=== PATIENT | female | born 1985 | race Caucasian/White ===

== ENCOUNTER → 2018-03-04 | Outpatient (CLI) | payer OTHER ==
--- NOTE | 2018-03-05 07:36 | USB ---
Reason for exam: clinical finding. Indicated problem(s): lump or thickening in the left breast. Physical Findings: Nurse Summary: Patient complains of left breast lump x 2 weeks (nurse luke). US Breast LT Left complete breast ultrasound includes all four quadrants, the retroareolar region and axilla. Finding demonstrates no cystic or solid lesion seen. These results were verbally communicated with the patient and result sheet given to the patient on 03/04/18. ASSESSMENT: Negative, BI-RAD 1 RECOMMENDATION: Routine screening mammogram of both breasts at age 40. Manage on a clinical basis with regard to left lump.
== END | disposition home or self-care (01) ==
LOC: RADUSWWP 15:38
PROVIDERS: ATTEND Family Medicine
DX: N63.20 Unspecified lump in the left breast, unspecified quadrant (principal)

== ENCOUNTER → 2019-09-15 | Outpatient (CLI) | payer OTHER ==
--- NOTE | 2019-09-15 10:09 | USB ---
Reason for exam: clinical finding. Physical Findings: Nurse did not find any significant physical abnormalities on exam. US Breast LT Technologist: Supriya Chavez complete breast ultrasound includes all four quadrants, the retroareolar region and axilla. Finding demonstrates no cystic or solid lesion seen. These results were verbally communicated with the patient and result sheet given to the patient on 09/15/19. ASSESSMENT: Negative, BI-RAD 1 RECOMMENDATION: Routine screening mammogram of both breasts at age 40. (unless clinical indication to start sooner) Manage on a clinical basis with regard to any suspicious palpable abnormalities.
== END | disposition home or self-care (01) ==
LOC: RADUSWWP 08:43
PROVIDERS: ATTEND Family Medicine
DX: N63.20 Unspecified lump in the left breast, unspecified quadrant (principal)

== ENCOUNTER → 2022-06-01 | Day surgery (SDC) | payer OTHER ==
--- NOTE | 2022-06-06 14:29 | USB ---
Risk Values: Noemi 5 year model risk: 0.3%. NCI Lifetime model risk: 7.4%. Pathology Description: Marker Left Behind. Needle Type: Mammotone Cores: 8 Gauge: 13 The procedure of ultrasound guided core biopsy was explained to the patient. Benefits, alternatives, and risks were discussed. An informed consent was then obtained. The oval echogenic lesion measuring 1.3 cm is identified at the 12:00 position right breast, 5 cm from the nipple and is targeted for biopsy. This is a patient palpated area without discrete mammographic correlate. The patient was placed in supine positioning for imaging and for the procedure. The overlying skin was prepped and draped in usual sterile fashion. Lidocaine was used as anesthetic into the skin and subcutaneous tissue up to area of concern in the right breast. Under ultrasound guidance, a 13-gauge vacuum-assisted mammotome Elite biopsy gun was was used to obtain 8 core samples. Following this, a Hydromark clip was left in lesion. The patient tolerated the procedure well without any immediate complication. The patient was kept in the radiology department for short stay after the procedure and then discharged home in stable condition. Postprocedure mammogram: The patient was transferred to mammography for physician ordered post procedure mammogram for clip placement verification. No discrete mammographic correlate at the 12-1 o'clock site of clip deployment. Impression: Successful, uncomplicated ultrasound guided core biopsy of area of concern in the 12:00 right breast. This is a patient palpated area. No mammographic correlate is seen. Full pathology results to follow. Pathology Results: Result: Benign, Fibrocystic change. RIGHT BREAST, CORE BIOPSY: Fat necrosis with focal fibrosis and fibrocystic change. Correlation with imaging studies is suggested, as clinically indicated. Tissue Density: Right: The breast tissue is heterogeneously dense. This may lower the sensitivity of mammography. Overall Assessment: Benign Assessment: MG diagnostic mammo RT wo CAD - Right: Benign, BI-RAD 2. Management: Diagnostic Breast Ultrasound of the right breast in 6 months. Electronically signed and approved by: Eva Cast M.D. Radiologist
== END ==
LOC: RADMAMWWP 12:31
PROVIDERS: ATTEND Family Medicine
DX: N63.10 Unspecified lump in the right breast, unspecified quadrant (principal); R92.8 Other abnormal and inconclusive findings on diagnostic imaging of breast
CPT/HCPCS: 88305; 77065; 19083; A4648

== ENCOUNTER → 2022-08-31 | Outpatient (CLI) | payer OTHER ==
[2022-08-31 09:24] VITALS: BP 123/84; PULSE 76; RESP 17; TEMP 98.9
--- NOTE | 2022-08-31 10:13 | P.GSHP ---
History of Present Illness H&P Date: 08/31/22 Chief Complaint: abnormal right breast ultrasound Pamella is a 37-year-old white female seen in consultation for Comfort Kelly. She had a bilateral mammogram performed on 12-20-21 which was BIRAD 2 benign. She than 3 months later felt nodularity in the right breast and an ultrasound was performed 05-12-22, this revealed a 1.1 x 1.3 cm hypoechoic oval lesion in the right breast at 12:00. This was consistent with what the patient felt. An ultrasound-guided core biopsy was performed on 06-01-22 and revealed necrosis with focal fibrosis and fibrocystic change. This is reviewed with Dr. Cast and felt to be concordant. This is a new finding for the patient. Foll owing the biopsy she noted some change in coloration of the skin at the area of the lump. In a causes some anxiety for her. She has never had any other surgery on her breast. She is not complaining of any trauma to the breast or any recent infections in the breast. She is not complaining of any nipple discharge or other skin changes. The skin changes occurred after the biopsy and she noted some erythema at the biopsy site. The erythema has not changed, she is not complaining of any fever or chills. She was not treated with any antibiotics. The erythema has not changed since it started. It started 2 weeks after biopsy. Caffiene: 2 cups/day nicotine: none; stopped 15 years ago smoked 3 years 1/2 PPD chocolate: weekly BCP: none hormones: none Family History: mother: pancreatic cancer Hormonal History: menarche: 13 A1, age at first : 18, breast fed: yes periods regular BCP: none hormones: none Surgical history: left thyroid resection no cancer D&C Medical History: HTN Social History: nicotine: as above alcohol: rare drugs: none - Constitutional Constitutional: Denies chills, Denies fever - EENT Eyes: denies blurred vision, denies pain Ears: deny: decreased hearing, tinnitus Ears, nose, mouth and throat: Denies headache, Denies sore throat - Breasts Breasts: bilateral: as per HPI - Cardiovascular Cardiovascular: Denies chest pain, Denies shortness of breath - Respiratory Respiratory: Denies cough, Denies 7 - Gastrointestinal Gastrointestinal: Denies abdominal pain, Denies diarrhea, Denies nausea, Denies vomiting - Genitourinary (Female) Genitourinary: Denies dysuria, Denies hematuria - Menstruation Menstruation: Reports period normal - Musculoskeletal Musculoskeletal: Denies myalgias - Integumentary Integumentary: Reports as per HPI - Neurological Neurological: Denies numbness, Denies weakness - Psychiatric Psychiatric: Denies anxiety, Denies depression - Endocrine Endocrine: Denies fatigue, Denies weight change - Hematologic/Lymphatic Comment: none - Allergic/Immunologic Allergic/Immunologic: Reports as per HPI Past Medical History Past Medical History: Hypertension History of Any Multi-Drug Resistant Organisms: None Reported Additional Past Surgical History / Comment(s): Left sided thyroidectomy, no medication Past Anesthesia/Blood Transfusion Reactions: No Reported Reaction Past Psychological History: No Psychological Hx Reported Smoking Status: Former smoker Past Alcohol Use History: None Reported, Rare Additional Past Alcohol Use History / Comment(s): quit smoking 2004?? Past Drug Use History: None Reported Medications and Allergies Home Medications Medication Instructions Recorded Confirmed Type amLODIPine 1 each PO DAILY 05/31/22 08/31/22 History lisinopriL [Zestril] 10 mg PO DAILY 05/31/22 08/31/22 History Allergies Allergy/AdvReac Type Severity Reaction Status Date / Time ceftriaxone [From Rocephin] Allergy Rash/Hives Verified 08/31/22 09:22 Surgical - Exam Vital Signs Temp Pulse Resp BP Pulse Ox 98.9 F 76 17 123/84 98 08/31/22 09:22 1208 09:22 12 09:22 08/31/22 09:22 08/31/22 09:22 BMI: 42.3 - General no distress - Eyes normal ocular movement - Neck well healed scar from thyroid resection at the age of 18 trachea midline - Respiratory normal respiratory effort, clear to auscultation - Cardiovascular Rhythm: regular Heart Sounds: normal: S1, S2 - Abdomen Abdomen: soft, non tender, no guarding, no rigid, no rebound - Integumentary The biopsy track in the right breast there is mild erythema which does not look to be infectious in nature but may be inflammatory in nature - Neurologic no disoriented, no combative - Musculoskeletal normal gait - Psychiatric oriented to time, oriented to person, oriented to place, speech is normal, memory intact Breast examination: BRA: 36C inspection; bilateral grade 3 ptosis Palpation: Right breast: Multi-positional exam fibrocystic changes, at the 12 o'clock position in the upper inner area of the pressors approximately 1 cm area of nodularity corresponding to the area which the patient palpated which was biopsied/this came back as fat necrosis and was felt to be concordant and reviewed with Dr. Cast Right axilla: No adenopathy of concern Left breast: Multi-positional exam fibrocystic changes no dominant masses or nodules of concern Left axilla: No adenopathy of concern Results Mammogram and ultrasound reviewed personally with Dr. Cast; lesion biopsy was felt to be concordant pathology with the area of the right breast at 12:00 Assessment and Plan Assessment: Impression: Palpable mass right breast 12:00/ultrasound-guided core biopsy revealing fat necrosis felt to be concordant Mass causes anxiety for the patient Plan: The patient is going to consider if she would like this to be resected or not secondary to the anxiety that this is causing her If patient chooses not to have this resected repeat ultrasound in 6 months recommended 2 and family history of pancreatic cancer, we have discussed genetic counseling and she is going to consider this CC: Comfort Kelly; Dr. Milner
== END ==
LOC: WWCWWP 08:57
PROVIDERS: ATTEND Surgery
DX: R92.8 Other abnormal and inconclusive findings on diagnostic imaging of breast (principal)

== ENCOUNTER → 2024-02-08 | Outpatient (CLI) | payer OTHER ==
[2024-02-08 15:17] LABS: Basophils # (A) 0.03 X 10*3/uL (0.00-0.10); Basophils % (A) 0.5 %; Eosinophils # (A) 0.07 X 10*3/uL (0.04-0.35); Eosinophils % (A) 1.2 %; HCT 39.6 % (37.2-46.3); HGB 13.4 g/dL (12.0-15.0); Lymphocytes # (A) 1.54 X 10*3/uL (0.90-5.00); Lymphocytes % (A) 26.3 %; MCH 29.4 pg (27.0-32.0); MCHC 33.8 g/dL (32.0-37.0); MCV 86.8 FL (80.0-97.0); Monocytes # (A) 0.41 X 10*3/uL (0.20-1.00); NRBC Per 100 WBC 0 X 10*3/uL (0.00-0.01); Neutrophils # (A) 3.79 X 10*3/uL (1.80-7.70); Neutrophils % (A) 64.8 %; Platelet Count 240 X 10*3/uL (140-440); RBC 4.56 X 10*6/uL (4.10-5.20); RDW 12.8 % (11.5-14.5); WBC 5.85 X 10*3/uL (4.50-10.00)
[2024-02-08 15:41] LABS: ALT 12 U/L (8-44); AST 15 U/L (13-35); Albumin 4.4 g/dL (3.8-4.9); Alkaline Phosphatase 55 U/L (41-126); BUN/Creat Ratio 15.43 Ratio (12.00-20.00); Blood Urea Nitrogen 10.8 mg/dL (9.0-27.0); Calcium 9.4 mg/dL (8.7-10.3); Carbon Dioxide 22.7 mmol/L (21.6-31.8); Chloride 104 mmol/L (96-109); Globulin 2.1 g/dL (1.6-3.3); Glucose 101 mg/dL (70-110); LDL Cholesterol,Calculated 102.2 mg/dL (0.0-131.0); Potassium 4.2 mmol/L (3.5-5.5); Sodium 140 mmol/L (135-145); Total Bilirubin 0.9 mg/dL (0.3-1.2); Total Protein 6.5 g/dL (6.2-8.2)
== END | disposition home or self-care (01) ==
LOC: LABWHC1 08:36
PROVIDERS: ATTEND Family Medicine
DX: I10 Essential (primary) hypertension (principal)
CPT/HCPCS: 36415; 80053; 80061; 84443; 85025

== ENCOUNTER → 2024-12-29 | Outpatient (CLI) | payer OTHER ==
--- NOTE | 2024-12-30 15:37 | MM ---
Reason for Exam: Screening (asymptomatic). Last mammogram was performed 3 year(s) and 1 month(s) ago. Patient History: Menarche at age 13. First Full-Term at age 17. Patient has history of breast feeding. 06/01/2022, Benign US biopsy breast VAD RT on the right side. Last menstrual period: 12/22/2024 Risk Values: Noeim 5 year model risk: 0.6%. NCI Lifetime model risk: 9.0%. Prior Study Comparison: 12/20/2021 Bilateral Screening Mammogram, [facility]. 06/01/2022 Right MG diagnostic mammo RT wo CAD, [facility]. Tissue Density: There are scattered areas of fibroglandular density. Findings: Analyzed By CAD. Upper-outer quadrant focal asymmetry right breast remains unchanged compared to the 2021 exam. There is no suspicious group of microcalcifications or new suspicious mass in either breast. Overall Assessment: Benign, BI-RAD 2 Management: Screening Mammogram of both breasts in 1 year. Patient should continue monthly self-breast exams. A clinical breast exam by your physician is recommended on an annual basis. This exam should not preclude additional follow-up of suspicious palpable abnormalities. Note on Noemi scores and lifetime risk: 1. A Noemi score greater than 3% is considered moderate risk. If this is the case, consider specialist referral to assess eligibility for a risk reducing agent. 2. If overall lifetime risk for the development of breast cancer is 20% or higher, the patient may qualify for future screening with alternating mammogram and breast MRI. [facility], , 12/30/2024 3:34 PM. Electronically signed and approved by: Eva Cast M.D. Radiologist
== END | disposition home or self-care (01) ==
LOC: RADMAMWWP 15:42
PROVIDERS: ATTEND Internal Medicine
DX: Z12.31 Encounter for screening mammogram for malignant neoplasm of breast (principal); R92.323 Mammographic fibroglandular density, bilateral breasts
CPT/HCPCS: 77067

== ENCOUNTER → 2024-12-29 | Outpatient (CLI) | payer OTHER ==
--- NOTE | 2024-12-29 16:16 | US ---
EXAMINATION TYPE: US thyroid st tissue head/neck DATE OF EXAM: 12/29/2024 COMPARISON: NONE CLINICAL INDICATION: Female, 39 years old with history of Z86.39 HX THYROID NODULE; pt had left thyro id removed TECHNIQUE: Grayscale and color Doppler imaging of the thyroid gland. FINDINGS: GLAND SIZE: Right Lobe: 4.9 x 2.4 x 1.9 cm Overall Parenchyma: heterogeneous Left Lobe: Surgically absent Isthmus Thickness: 0.7 cm NODULES RIGHT: # of nodules measured on right: 1 1. 1.1 X 1.1 x 0.8 cm, lower medial, cystic or almost completely cystic, very hypoechoic nodule, wh ich is wider than tall, with smooth margins, with echogenic foci. TR 1 ISTHMUS: # of nodules measured in the isthmus: 0 Bilateral neck scanned, no evidence of lymphadenopathy. IMPRESSION: Highest TI-RADS level nodule reported: 2017 ACR TI-RADS LEVEL: TI-RADS 1 - BENIGN: No FNA TI-RADS assessment score and recommendation for follow-up based on appropriate scoring and treatment protocols. TR3: If nodule size is ? 2.5 cm, FNA is recommended. If nodule size is ? 1.5 cm, follow-up imaging at 1, 3, and 5 years is recommended. TR4: If nodule size is ? 1.5 cm, FNA is recommended. If nodule size is ? 1.0 cm, follow-up imaging at 1, 2, 3, and 5 years is recommended. TR5: If nodule size is ? 1.0 cm, FNA is recommended. If nodule size is ? 0.5 cm, annual follow-up for up to 5 years is recommended. [email or web address] [facility], , 12/29/2024 4:13 PM
== END | disposition home or self-care (01) ==
LOC: RADUSWWP 15:40
PROVIDERS: ATTEND Internal Medicine
DX: E04.1 Nontoxic single thyroid nodule (principal); Z86.39 Personal history of other endocrine, nutritional and metabolic disease
CPT/HCPCS: 76536